=== PATIENT | female | born 1945 | race Caucasian/White ===

== ENCOUNTER 2023-02-24 12:43 | Emergency (ER) | payer MEDICARE, BC, SELFPAY ==
--- NOTE | 2023-02-24 12:44 | ED.FEMALEGU ---
HPI - Female Genitourinary General Chief complaint: Urogenital-Female Stated complaint: uti Time Seen by Provider: 02/24/23 12:44 Source: patient Mode of arrival: ambulatory Limitations: no limitations History of Present Illness HPI Narrative: PATIENT IS A 77-YEAR-OLD FEMALE WHO PRESENTS WITH URINARY FREQUENCY, BURNING WITH URINATION FOR 2 AND HALF WEEKS. CALLED PRIMARY CARE PROVIDER AND HAD A PRESCRIPTION SENT IN ON MONDAY. PATIENT WAS ON BACTRIM FOR 4 DAYS WITH NO RELIEF, STOP TAKING ANTIBIOTIC 2 DAYS AGO. STATES SHE HAD BLOOD CLOTS IN URINE YESTERDAY. HAS TRIED [id number] AZO WITH RELIEF OF SYMPTOMS UNTIL MEDICATION WORE OFF. DENIES ANY LOW BACK PAIN, FEVER, CHILLS, NAUSEA, VOMITING, DIARRHEA MD elicited complaint: dysuria Related Data Home Medications Medication Instructions Recorded Confirmed amlodipine 5 mg tablet 5 mg DAILY 02/24/23 02/24/23 aspirin 81 mg chewable tablet 81 mg DAILY 02/24/23 02/24/23 ergocalciferol (vitamin D2) 1,250 1 unit DAILY 02/24/23 02/24/23 mcg (50,000 unit) capsule infliximab 100 mg intravenous 100 mg IV MONTHLY 02/24/23 02/24/23 solution (Remicade) levothyroxine 100 mcg tablet 100 mcg DAILY 02/24/23 02/24/23 metformin 500 mg tablet,extended 500 mg PO QPM 02/24/23 02/24/23 release 24 hr omeprazole 40 mg capsule,delayed 40 mg DAILY 02/24/23 02/24/23 release Allergies Allergy/AdvReac Type Severity Reaction Status Date / Time No Known Allergies Allergy Verified 02/24/23 12:58 Review of Systems Review of Systems: All systems reviewed & are unremarkable except as noted in HPI and below Constitutional: Constitutional: Denies chills, Denies fever(s), Denies headache(s), Denies malaise and Denies weakness Eyes: Eyes: Denies change in vision, Denies eye discharge and Denies irritation ENT: Denies otalgia, Denies headache(s), Denies nasal congestion, Denies nasal discharge, Denies sinus pain and Denies sore throat Cardiovascular: Cardiovascular: Denies chest pain, Denies edema, Denies palpitations and Denies dyspnea Respiratory: Respiratory: Denies cough and Denies dyspnea Gastrointestinal: Gastrointestinal: Denies abdominal pain, Denies diarrhea, Denies nausea and Denies vomiting Genitourinary: Genitourinary: Denies hematuria, Reports nocturia, Reports dysuria, Denies flank pain and Reports urinary urgency Musculoskeletal: Musculoskeletal: Denies back pain and Denies numbness Integumentary/Breasts: Skin/Breast: Denies pruritus and Denies rash Neurologic: Denies headache(s), Denies numbness and Denies weakness Psychiatric: Psychiatric: Reports no additional psychiatric complaints Endocrine: Endocrine: Denies palpitations PMFSH Comments At time of signature, agree with nursing past medical, surgical, social and family history. There is no relevant family history pertinent to the presenting complaint. Exam Const: General: cooperative, healthy appearing, comfortable, no acute distress and well nourished Nutritional Appearance: well nourished Orientation/consciousness: patient oriented x3 HENMT: Head: normocephalic and atraumatic Ears: external ears normal Face/Nose/Sinus: Normal external nose present, Normal nares present and normal facial exam Face and sinus: normal facial exam Eyes: General: appearance normal, both eyes and all related structures Pupils: Equal, round and reactive pupils present EOM: EOMs intact bilaterally Neck: Neck: normal visual inspection, full ROM and supple Chest: Chest palpation & inspection: normal inspection of the chest Resp: Effort & Inspection: normal respiratory effort and able to speak in complete sentences Cardio: Rate: regular rate Rhythm: regular rhythm GI: Inspection: normal to inspection GI Palp: No abdominal tenderness and Yes Soft to palpation : General: Yes no CVA tenderness Back/Spine/Pelvis: Back: no CVA tenderness Skin: General skin exam: normal color and no rashes or lesions noted Neuro: General:
[2023-02-24 12:56] VITALS: BP 158/67; PULSE 80; RESP 16; TEMP 36.2; O2SAT 100
== END 2023-02-24 13:37 | disposition home or self-care (01) ==
PROVIDERS: Emergency Provider Nurse Practitioner Family
DX: N39.0 Urinary tract infection, site not specified (principal); Z79.82 Long term (current) use of aspirin
CPT/HCPCS: 81003; 87086; 99213; G0463